=== PATIENT | female | born 2005 | race Two or more races ===

== ENCOUNTER 2024-02-28 11:30 | Emergency (ER) | payer MEDICAID ==
[~2024-02-28] VITALS: Ht 160 cm; Wt 118.6 kg
--- NOTE | 2024-02-28 11:55 | ED.PDOC ---
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 Patient reports heavy bleeding with no blood clots and denies any current . Patient has been seen for this complaint at [facility] in the past, was placed on Provera for 2 weeks but has no improvement and now states this vaginal bleeding episode is heavier than usual. Patient denies any fever, chills, back pain, nausea, vomiting or diarrhea. She denies any medical, surgical history, allergies, or blood thinner use including ASA. Chief Complaint: Vaginal Bleed Time Seen by MD: 11:44 Reviewed Notes: Nurses Notes, Medications, Allergies Allergies: Coded Allergies: NO KNOWN ALLERGIES (Unverified , 07/02/10) Information Source: Patient Mode of Arrival: Ambulatory Timing: Days (4) Severity: Moderate Vaginal Discharge: None Vaginal Lesions: None Bleeding Quality: Dark Vaginal Mass: None Onset Of Mass/Bleeding: Spontaneous Sexual Activity: Neither Last Consensual [place]: Unknown Control: None Blood Type: Unknown Associated Signs and Symptoms: Vaginal Bleeding, Abdominal Pain Past Medical History PAST MEDICAL HISTORY: Denies Surgical History: Denies all surgeries SPORTS INFORMATION DIRECTOR History: No Pertinent SPORTS INFORMATION DIRECTOR History Family History Family History: Reviewed,noncontributory to illness Social History Smoker: Cigarettes Alcohol: Denies ETOH Use Drugs: Denies Drug Use Lives In: Home Constitutional: denies: chills, diaphoresis, fatigue, fever, malaise, sweats, weakness, others EENTM: denies: blurred vision, double vision, ear bleeding, ear discharge, ear drainage, ear pain, ear ringing, eye pain, eye redness, hearing loss, mouth pain, mouth swelling, nasal discharge, nose bleeding, nose congestion, nose pain, photophobia, tearing, throat pain, throat swelling, voice changes, others Respiratory: denies: cough, hemoptysis, orthopnea, SOB at rest, shortness of breath, SOB with excertion, stridor, wheezing, others Cardiovascular: denies: chest pain, dizzy spells, diaphoresis, Dyspnea on exertion, edema, irregular heart beat, left arm pain, lightheadedness, palpitations, PND, syncope, others Gastrointestinal: reports: abdominal pain; denies: abdomen distended, blood streaked bowels, constipated, diarrhea, dysphagia, difficulty swallowing, hematemesis, melena, nausea, poor appetite, poor fluid intake, rectal bleeding, rectal pain, vomiting, others Genitourinary: reports: abnormal vagina bleeding; denies: burning, dyspareunia, dysuria, flank pain, frequency, hematuria, incontinence, pain, , vagina discharge, urgency, others Neurological: denies: dizziness, fainting, headache, left sided numbness, left sided weakness, numbness, paresthesia, pre-existing deficit, right sided numbness, right sided weakness, seizure, speech problems, tingling, tremors, weakness, others Musculoskeletal: denies: back pain, gout, joint pain, joint swelling, muscle pain, muscle stiffness, neck pain, others Integumetry: denies: bruises, change in color, change in hair/nails, dryness, laceration, lesions, lumps, rash, wounds, others Allergic/Immunocompromised: denies: Difficulty Healing, Frequent Infections, Hi ves, Itching, others Hematologic/Lymphatic: denies: anemia, blood clots, easy bleeding, easy bruising, swollen glands, others Endocrine: denies: excessive hunger, excessive sweating, excessive thirst, excessive urination, flushing, intolerance to cold, intolerance to heat, unexplained weight gain, unexplained weight loss, others Psychiatric: denies: anxiety, bipolar disorder, depression, hopeless, panic disorder, schizophrenia, sleepless, suicidal, others All Other Systems: Reviewed and Negative Physical Exam General Appearance: No Apparent Distress HEENT: Normal ENT Inspection, Pharynx Normal, TMs Normal Neck: Full Range of Motion, Non-Tender, Normal, Normal Inspection Respiratory: Chest Non-Tender, Lungs Clear, No Accessory Muscle Use, No Respiratory Distress, Normal Breath Sounds Cardiovascular: No Edema, No JVD, No Murmur, No Gallop, Normal Peripheral Pulses, Regular Rate/Rhythm Breast Exam: Deferred Gastrointestinal: No Organomegaly, Non Tender, No Pulsatile Mass, Normal Bowel Sounds, Soft Genitalia: Deferred Pelvic: Deferred Rectal: Deferred Extremities: No calf tenderness, Normal capillary refill, Normal inspection, Normal range of motion, Non-tender, No pedal edema Musculoskeletal : Apperance: Normal Neurologic: Alert, director business development II-XII nml as Tested, No Motor Deficits, Normal Affect, Normal Mood, No Sensory Deficits Cerebellar Function: Normal Reflexes: Normal Skin: Dry, Normal Color, Warm Lymphatic: No Adenopathy Was a procedure done? Was a procedure done?: No Differential Diagnosis (SPORTS INFORMATION DIRECTOR) Vaginal Bleeding: Blood Loss Anemia, Cervicitis, Dysmenorrhea, Ectopic , Hormonal, Menorrhagia, Menometrorrhagia, Menstrual Bleeding, UTI, Vaginitis X-Ray, Labs, Meds, VS Vital Signs Date Time Temp Pulse Resp B/P (MAP) Pulse Ox O2 Delivery O2 Flow Rate FiO2 02/28/24 13:47 Room Air* 0 21 02/28/24 12:00 82 16 123/89 (100) 98 02/28/24 11:48 98.5 92 16 151/100 (117) 95 Lab Test 02/28/24 11:59 02/28/24 11:56 Range/Units White Blood Count 8.8 4.4-10.8 10^3/uL Red Blood Count 4.61 4.0-5.20 10^6/uL Hemoglobin 12.4 12.2-16.2 g/dL Hematocrit 36.2 36.0-46.0 % Mean Corpuscular Volume 78.6 L 80.0-100.0 fL Mean Corpuscular Hemoglobin 26.9 L 28.0-32.0 pg Mean Corpuscular Hemoglobin Concent 34.3 32.0-36.0 g/dL Red Cell Distribution Width 14.7 H 11.8-14.3 % Platelet Count 477 H 140-450 10^3/uL Mean Platelet Volume 6.8 L 6.9-10.8 fL Neutrophils (%) (Auto) 60.8 37.0-80.0 % Lymphocytes (%) (Auto) 31.0 10.0-50.0 % Monocytes (%) (Auto) 5.6 0.0-12.0 % Eosinophils (%) (Auto) 2.1 0.0-7.0 % Basophils (%) (Auto) 0.5 0.0-2.0 % Neutrophils # (Auto) 5.4 1.6-8.6 10 ^3/uL Lymphocytes # (Auto) 2.7 0.4-5.4 10 ^3/uL Monocytes # (Auto) 0.5 0-1.3 10 ^3/uL Eosinophils # (Auto) 0.2 0-0.8 10 ^3/uL Basophils # (Auto) 0 0-0.2 10 ^3/uL Nucleated Red Blood Cells 0.1 % Beta HCG, Quantitative 0.2 L 1.5-4.2 mIU/mL Urine Color Light-yellow Yellow Urine Clarity Clear Clear Urine pH 7.0 5.0-9.0 Urine Specific [place] 1.021 1.001-1.035 Urine Protein Negative Negative Urine Ketones Negative Negative Urine Blood 3+ H Negative /uL Urine Nitrite Negative Negative Urine Bilirubin Negative Negative Urine Urobilinogen Normal Negative mg/dL Urine Leukocyte Esterase Negative Negative /uL Urine RBC 219 0 - 4 /hpf Urine WBC <1 0 - 5 /hpf Urine Squamous Epithelial Cells Few <5 /hpf Urine Bacteria None seen None Seen /hpf Urine Mucus Few None Seen Urine Glucose Normal Normal mg/dL The urine test is negative for any infection The CBC is within normal limits The quantitative hCG is negative The ultrasound of the pelvis is also negative The patient will return to the emergency department's the condition worsens The patient is encouraged to follow up with her primary care doctor Images Reviewed?: Images reviewed and evaluated by me Time of 1ST Reevaluation: 11:54 Reevaluation 1ST: Unchanged Patient Education/Counseling: Diagnosis, Treatment, Prognosis, Need For Follow Up Family Education/Counseling: No Family Present Departure 1 Departure Time of Disposition: 13:57 Impression: Primary Impression: Abnormal vaginal bleeding Disposition: 01 HOME / SELF CARE / HOMELESS Condition: Fair Discharged With: Self Critical Care Note Critical Care Time?: No Stability Stability form required: No I personally scribed for BERNICE MARION MD ([employer]) on 02/28/24 at 11:55. Electronically submitted by Nadia Alicea ([employer]). I personally scribed for BERNICE MARION MD ([employer]) on 02/28/24 at 11:55. Electronically submitted by Nadia Alicea ([facility] BERNICE MARION MD Feb 28, 2024 11:55
[2024-02-28 12:13] LABS: Urine Bacteria None Seen /hpf (None Seen)
[2024-02-28 12:13] LABS: Basophils # (auto) 0 10 ^3/uL (0-0.2); Eosinophils # (auto) 0.2 10 ^3/uL (0-0.8); Red Cell Distribution Width 14.7 % (11.8-14.3)
[2024-02-28 12:18] LABS: Basophils % (auto) 0.5 % (0.0-2.0); Eosinophils % (auto) 2.1 % (0.0-7.0); Hematocrit 36.2 % (36.0-46.0); Hemoglobin 12.4 g/dL (12.2-16.2); Lymphocytes # (auto) 2.7 10 ^3/uL (0.4-5.4); Mean Corpuscular Hemoglobin 26.9 pg (28.0-32.0); Mean Corpuscular Hgb Conc. 34.3 g/dL (32.0-36.0); Mean Corpuscular Volume 78.6 fL (80.0-100.0); Monocytes # (auto) 0.5 10 ^3/uL (0-1.3); Monocytes % (auto) 5.6 % (0.0-12.0); Neutrophils # (auto) 5.4 10 ^3/uL (1.6-8.6); Neutrophils % (auto) 60.8 % (37.0-80.0); Nucleated Red Blood Cells % 0.1 %; Platelet Count (auto) 477 10^3/uL (140-450); Red Blood Cells 4.61 10^6/uL (4.0-5.20); White Blood Cell 8.8 10^3/uL (4.4-10.8)
[2024-02-28 12:30] LABS: Urine Blood 3+ /uL (Negative); Urine Clarity Clear (Clear); Urine Color Light-Yellow (Yellow); Urine Mucus FEW (None Seen); Urine Protein, UAD Negative (Negative); Urine Specific Gravity 1.021 (1.001-1.035); Urine Squamous Epithelial Cell FEW /hpf (<5); Urine Urobilinogen Normal (Negative); Urine WBC <1 /hpf (0 - 5)
--- NOTE | 2024-02-28 13:47 | DVH ---
INDICATION: abnormal vaginal bleed TECHNIQUE: Multiple real-time grayscale transabdominal sonographic images along with color and duplex Doppler of the uterus and ovaries were obtained. Patient refused transvaginal exam. COMPARISON: None FINDINGS: The uterus measures 7.9 x 4.7 x 4.6 cm. The endometrial stripe measures 0.4 cm. The right ovary measures 2.4 x 1 7 x 2.2 cm. The left ovary measures 2.9 x 1.9 x 1.7 cm. Subsequent color and duplex Doppler interrogation of the ovaries demonstrated symmetric vascular flow to both ovaries, though this does not exclude the possibility of torsion due to the dual blood suppl y. IMPRESSION: 1. Grossly unremarkable pelvic ultrasound.
[2024-02-28 14:22] VITALS: BP 122/86; PULSE 63; RESP 18; O2SAT 99
== END 2024-02-28 14:24 | disposition home or self-care (01) ==
LOC: ER 11:30
DX: N93.9 Abnormal uterine and vaginal bleeding, unspecified (principal); R10.30 Lower abdominal pain, unspecified; F17.210 Nicotine dependence, cigarettes, uncomplicated
CPT/HCPCS: 36415; 76856; 81001; 84702; 85025